=== PATIENT | male | born 1970 | race Two or more races ===

== ENCOUNTER 2021-04-03 20:05 | Emergency (ER) | payer SELFPAY ==
[~2021-04-03] VITALS: Ht 170.2 cm; Wt 72.1 kg
[2021-04-04 00:19] LABS: Urine Bacteria NONE SEEN /hpf (None Seen); Urine Blood TRACE /uL (Negative); Urine Mucus FEW (None Seen); Urine Specific Gravity 1.013 (1.001-1.035); Urine WBC 27 /hpf (0 - 3); Urine WBC Clumps PRESENT /hpf (None Seen)
[2021-04-04] MEDS ORDERED: KETOROLAC TROMETH 30 MG/ML 1ML VIAL IM ONE (03:00)
[2021-04-04] MEDS ORDERED: KETOROLAC TROMETH 30 MG/ML 1ML VIAL IV ONE (03:00)
[2021-04-04] MEDS ORDERED: TAM04C PO (03:16)
[2021-04-04] MEDS ORDERED: CEPH500C PO (03:16)
[2021-04-04] MEDS ORDERED: HYDR-4902 PO (03:16)
[2021-04-04 03:23] VITALS: BP 119/80
[2021-04-05] MEDS ORDERED: TRAM50TA2 PO ×2 (03:49→04:08)
[2021-04-05] MEDS ORDERED: ONDA-144 PO ×2 (03:49→04:08)
== END 2021-04-04 03:17 | disposition home or self-care (01) ==
LOC: ER 20:10
DX: R10.9 Unspecified abdominal pain (principal); N50.819 Testicular pain, unspecified
CPT/HCPCS: 74176; 81001; 96374; 99284; J1885

== ENCOUNTER 2021-04-05 00:02 | Emergency (ER) | payer MEDICAID, OTHER ==
[~2021-04-05] VITALS: Ht 170.2 cm; Wt 68.0 kg
[~2021-04-05 00:02] MED LIST: CEPH500C PO; HYDR-4902 PO; TAM04C PO
[2021-04-05] MEDS ORDERED: diphenhdrAMINE HCL 50 MG/1 ML VL IV ONE (00:30)
[2021-04-05] MEDS ORDERED: KETOROLAC TROMETH 30 MG/ML 1ML VIAL IV ONE (00:30)
[2021-04-05] MEDS ORDERED: METOCLOPRAMIDE HCL 5MG/ml INJ 2ml VIAL IV ONE (00:30)
[2021-04-05] MEDS ORDERED: SODIUM CHLORIDE 0.9% 1,000 ML IV ONE (00:30)
[2021-04-05 00:59] LABS: Basophils # (auto) 0 10 ^3/uL (0-0.2); Basophils % (auto) 0.3 % (0.0-2.0); Eosinophils # (auto) 0.1 10 ^3/uL (0-0.8); Eosinophils % (auto) 1.2 % (0.0-7.0); Lymphocytes # (auto) 1.1 10 ^3/uL (0.4-5.4); Lymphocytes % (auto) 13.6 % (10.0-50.0); Mean Corpuscular Hemoglobin 30.5 pg (28.0-32.0); Mean Corpuscular Hgb Conc. 34.1 g/dL (32.0-36.0); Mean Corpuscular Volume 89.2 fL (80.0-100.0); Monocytes # (auto) 0.4 10 ^3/uL (0-1.3); Monocytes % (auto) 5.2 % (0.0-12.0); Neutrophils # (auto) 6.7 10 ^3/uL (1.6-8.6); Neutrophils % (auto) 79.7 % (37.0-80.0); Nucleated Red Blood Cells % 0.1 %; Red Blood Cells 4.59 10^6/uL (4.5-5.90); Red Cell Distribution Width 15.3 % (11.8-14.3); White Blood Cell 8.4 10^3/uL (4.4-10.8)
[2021-04-05 01:23] LABS: Albumin 4.1 g/dL (3.4-5.0); Calcium 9.2 mg/dL (8.5-10.1)
[2021-04-05 01:26] LABS: Bilirubin, Total 0.5 mg/dL (0.2-1.0); Total Protein 7.5 g/dL (6.4-8.2)
[2021-04-05] MEDS ORDERED: cefTRIAXone 1GM/50ML D5W 50 ML IV ONE (02:45)
[2021-04-05] MEDS ORDERED: traMADol HCL 50 MG TAB PO ONE (02:45)
[2021-04-05 02:49] LABS: Urine Bacteria NONE SEEN /hpf (None Seen); Urine Blood 1+ /uL (Negative); Urine Specific Gravity 1.008 (1.001-1.035); Urine WBC 2 /hpf (0 - 3)
[2021-04-05] MEDS ORDERED: ONDA-144 PO ×2 (03:49→04:08)
[2021-04-05] MEDS ORDERED: TRAM50TA2 PO ×2 (03:49→04:08)
[2021-04-05 03:53] VITALS: BP 105/63
== END 2021-04-05 04:09 | disposition home or self-care (01) ==
LOC: EDBD 00:02 → ER 00:02
DX: N20.0 Calculus of kidney (principal); N39.0 Urinary tract infection, site not specified
CPT/HCPCS: 36415; 80053; 81001; 85025; 96361; 96365; 96375; 99284; J0696; J1200; J1885; J2765; J7030